=== PATIENT | male | born 1980 | race Caucasian/White ===

== ENCOUNTER 2017-01-05 20:13 | Emergency (ER) | payer MEDICAID ==
[~2017-01-05] VITALS: Ht 188 cm; Wt 101.4 kg
[~2017-01-05 20:13] MED LIST: AUGM875T PO
[2017-01-05 20:23] VITALS: BP 130/93; PULSE 86; RESP 16; TEMP 97.9; O2SAT 98
[2017-01-05] MEDS ORDERED: SODIUM CHLORIDE 0.9% FLUSH 5 ML FLUSH IVF PRN (21:30)
[2017-01-05] MEDS ORDERED: LIDOCAINE VISCOUS 2% SOLN 15 ML UDC PO ONE (21:30)
[2017-01-05] MEDS ORDERED: LIDOCAINE 1%/EPINEPHrine 1:100,000 SOLN 20 ML VIAL INFIL ONE (21:30)
[2017-01-05] MEDS ORDERED: ALUMINUM/MAGNESIUM/SIMETH 30 ML CUP PO ONE (21:30)
[2017-01-05] MEDS ORDERED: BACT800T5 PO (21:40)
[2017-01-05] MEDS ORDERED: CEPH-460 PO (21:40)
[2017-01-05] MEDS ORDERED: MAALSUS18 PO (21:41)
--- NOTE | 2017-01-05 21:41 | PD ---
HPI Chief Complaint: Abdominal Pain Time Seen by Provider: 21:19 Travel History International Travel<30 days: No Contact w/Intl Traveler<30days: No Traveled to known affect area: No History of Present Illness HPI The patient is a 36-year-old male. He reports about 9 hours of epigastric abdominal pain. He has a history of peptic ulcer disease. He ate lunch at the [facility]. The pain has been constant. He denies fever and vomiting. He' s had no diarrhea. The pain has a gastric quality. Additionally he notes a left forearm abscess for about 1 week. It has become very painful in the last 2 days. Yesterday he unroofed the abscess and pus and blood was expressed. No interval drainage has occurred and the forearm pain has persisted. PFSH Past Medical History Medical History: Denies Significant Hx Cancer: No Cardiovascular Problems: No Diabetes: No Endocrine: No Gastrointestinal Disorders: Yes (GERD, ULCER HX) Genitourinary: No Hepatitis: No Hiatal Hernia: No Hypertension: No Immune Disorder: No Musculoskeletal: No Neurologic: No Psychiatric: No Respiratory: No Thyroid Disease: No Tetanus Vaccination: < 5 Years Influenza Vaccination: No Past Surgical History AICD: No Joint Replacement: No Pacemaker: No Other Surgery: Yes Social History Alcohol Use: Yes (WEEKLY) Tobacco Use: Yes (ONE PACK WEEK) Substance Use: No Allergies-Medications (Allergen,Severity, Reaction): Coded Allergies: No Known Allergies (Unverified , 10/18/15) Reported Meds & Prescriptions Reported Meds & Active Scripts Active Maalox Advanced Maximum Strength Liq (Ajehpnvn-Dkestwnbp-Tcyggpszavs Liq) 400- 400-40 Mg/5 Ml Susp 10-20 Ml PO QID PRN 10 Days Take between meals or as directed. Shake well. Maximum 60 ml/24 hrs. Keflex (Cephalexin) 500 Mg Cap 500 Mg PO Q8H Bactrim DS (Sulfamethoxazole-Trimethoprim) 800-160 Mg Tab 1 Tab PO BID Augmentin 875 mg Tab (Amoxicillin & Pot Clavulanate 875 mg Tab) 875 Mg Tab 875 Mg PO Q12 10 Days Review of Systems Except as stated in HPI: all other systems reviewed are Neg General / Constitutional: No: Fever Gastrointestinal: Positive: Abdominal Pain, Indigestion, No: Nausea, Vomiting , Diarrhea Skin: Positive Lesions Physical Exam Narrative GENERAL: 36-year-old male well-nourished well-developed no acute distress SKIN: Warm and dry. There is approximately 3 cm of abscess with fluctuance about the region of the proximal radial left forearm. HEAD: Atraumatic. Normocephalic. EYES: Pupils equal and round. No scleral icterus. No injection or drainage. ENT: No nasal bleeding or discharge. Mucous membranes pink and moist. NECK: Trachea midline. No JVD. CARDIOVASCULAR: Regular rate and rhythm. No murmur appreciated. RESPIRATORY: No accessory muscle use. Clear to auscultation. Breath sounds equal bilaterally. GASTROINTESTINAL: Minimal epigastric tenderness with deep palpation. Negative Bhatti sign. No tenderness at McBurney's point. MUSCULOSKELETAL: No obvious deformities. No clubbing. No cyanosis. No edema. NEUROLOGICAL: Awake and alert. No obvious cranial nerve deficits. Motor grossly within normal limits. Normal speech. PSYCHIATRIC: Appropriate mood and affect; insight and judgment normal. Data Data Last Documented VS Vital Signs Date Time Temp Pulse Resp B/P Pulse Ox O2 Delivery O2 Flow Rate FiO2 01/05/17 20:23 97.9 86 16 130/93 98 Vital signs reviewed Orders Sodium Chloride 0.9% Flush (Ns Flush) (01/05/17 21:30) Al-Mag Hy-Si 40-40-4 Mg/Ml Liq (Mag-Al P (01/05/17 21:30) Lidocaine 2% Viscous (Xylocaine 2% Visco (01/05/17 21:30) Wound Culture And Gram Stain (01/05/17 21:24) Lidocai-Epi 1%-1:100,000 Inj (Xylocaine- (01/05/17 21:30) Acetamin-Hydrocod 325-5 Mg (Cawood 5-325 (01/05/17 22:00) MDM Medical Decision Making Medical Screen Exam Complete: Yes Emergency Medical Condition: Yes Differential Diagnosis Abscess, cellulitis, gastritis, necrotizing this, gallbladder disease, constipation, hepatitis not otherwise specified Narrative Course Evidently the abscess has recurred a few times. We'll culture the wound and place the patient on Bactrim and Keflex. Abdominal exam is benign. There is no fever or tachycardia to suggest a septic state. The patient has had a good response to GI cocktail. Abscess drained by KIAN Sousa. Diagnosis Primary Impression: Epigastric abdominal pain Additional Impression: Abscess Referrals: Katharine Paiz MD 2 days Additional Instructions: You have a choice when it comes to health care, and we are glad that you chose [facility]. Hopefully, we have met your expectations on today's visit. You are welcome to return to [facility] at any time, as we are committed to meeting the health care needs of our community. Med/Other Pt SpecificInfo: Prescription(s) given Scripts Jsadwbhr-Xipqyquok-Csgqsvqojes Liq (Maalox Advanced Maximum Strength Liq)400-400 -40 Mg/5 Ml [id number] Ml PO QID PRN (INDIGESTION OR UPSET STOMACH) 10 Days Ref 0 Take between meals or as directed. Shake well. Maximum 60 ml/24 hrs. Prov:Prince Santana MD 01/05/17 Cephalexin (Keflex)500 Mg [id number] Mg PO Q8H #30 CAP Ref 0 Prov:Prince Santana MD 01/05/17 Sulfamethoxazole-Trimethoprim (Bactrim DS)800-160 Mg Tab1 Tab PO BID #20 TAB Ref 0 Prov:Prince Santana MD 01/05/17 Disposition: 01 DISCHARGE HOME Condition: Stable Prince Santana MD Jan 05, 2017 21:41
--- NOTE | 2017-01-05 21:48 | PD ---
Physical Exam Date Seen by Provider: Jan 05, 2017 Time Seen by Provider: 21:46 Data Data Last Documented VS Vital Signs Date Time Temp Pulse Resp B/P Pulse Ox O2 Delivery O2 Flow Rate FiO2 01/05/17 20:23 97.9 86 16 130/93 98 Orders Sodium Chloride 0.9% Flush (Ns Flush) (01/05/17 21:30) Al-Mag Hy-Si 40-40-4 Mg/Ml Liq (Mag-Al P (01/05/17 21:30) Lidocaine 2% Viscous (Xylocaine 2% Visco (01/05/17 21:30) Wound Culture And Gram Stain (01/05/17 21:24) Lidocai-Epi 1%-1:100,000 Inj (Xylocaine- (01/05/17 21:30) MDM Supervised Visit with [place]: No Narrative Course Dr. Santana initially saw this patient. Please see his note for those details. On my examination the patient has a 3-4 cm indurated area on the posterior aspect of the left forearm. Small area of fluctuance, no punctum or drainage. No lymphatic streaking or axillary LAD. Abscess I&D was performed. Please see my procedure note for details. Dr. Santana retains care of this patient, see his note for disposition. Procedures Procedure Narrative INCISION AND DRAINAGE OF ABSCESS: The area was prepped and was sterilely draped. A subcutaneous wheal of 1 % Xylocaine with epinephrine with a total number 5 mL was used to anesthetize the area properly. A number 11 scalpel was used to make a 1.5-cm incision across the area of the abscess. The abscess was drained, complex loculations were broken down, and irrigated with normal saline. Cultures were obtained. Quarter inch iodoform packing was placed in the wound. Sterile dressing applied. Patient advised to have packing removed in two days. Diagnosis Primary Impression: Epigastric abdominal pain Additional Impression: Abscess Referrals: Katharine Paiz MD 2 days Additional Instruction: You have a choice when it comes to health care, and we are glad that you chose [facility]. Hopefully, we have met your expectations on today's visit. You are welcome to return to [facility] at any time, as we are committed to meeting the health care needs of our community. Scripts Plydcwcg-Qgevpzpxu-Xzqywkpvbwb Liq (Maalox Advanced Maximum Strength Liq)400-400 -40 Mg/5 Ml Mjny03-10 Ml PO QID PRN (INDIGESTION OR UPSET STOMACH) 10 Days Ref 0 Take between meals or as directed. Shake well. Maximum 60 ml/24 hrs. Prov:Prince Santana MD 01/05/17 Cephalexin (Keflex)500 Mg [id number] Mg PO Q8H #30 CAP Ref 0 Prov:Prince Santana MD 01/05/17 Sulfamethoxazole-Trimethoprim (Bactrim DS)800-160 Mg Tab1 Tab PO BID #20 TAB Ref 0 Prov:Prince Sanatna MD 01/05/17 Disposition: 01 DISCHARGE HOME Condition: Stable Merry Hernandez Jan 05, 2017 21:48
[2017-01-05] MEDS ORDERED: ACETAMINOPHEN/HYDROcodone 325 MG/5 MG TAB PO ONE (22:00)
[2017-01-05] MEDS ORDERED: ULTR50TA5 PO (22:26)
== END 2017-01-05 22:32 | disposition home or self-care (01) ==
LOC: PHED 20:13 → PHEFT 22:32
DX: L02.414 Cutaneous abscess of left upper limb (principal); B95.62 Methicillin resistant Staphylococcus aureus infection as the cause of diseases classified elsewhere; R10.13 Epigastric pain; F17.210 Nicotine dependence, cigarettes, uncomplicated
CPT/HCPCS: 10061; 86403; 87070; 87186; 87205